=== PATIENT | male | born 1995 | race Caucasian/White ===

== ENCOUNTER 2016-09-18 05:36 | Emergency (ER) | payer OTHER ==
[~2016-09-18] VITALS: Ht 175.3 cm; Wt 73.0 kg
[2016-09-18 05:38] VITALS: BP 139/76; PULSE 90; RESP 16; TEMP 99.3; O2SAT 98
[2016-09-18 09:07] LABS: BLOOD, URINE NEG (NEG); COMMENT (UR) CULT NOT INDICATED; CULTURE IF INDICATED CULT NOT INDICATED; GLUCOSE,URINE NEG (NEG); KETONE, URINE NEG (NEG); MUCUS URINE FEW /lpf (OCC); NITRITE,URINE NEG (NEG); URINE COLOR YELLOW (YELLW/STRAW)
[2016-09-18 09:12] LABS: AUTOMATED NEUTROPHIL # 18.7 TH/MM3 (1.8-7.7); BASOPHIL # 0.2 TH/MM3 (0-0.2); BASOPHIL % 1.1 % (0.0-2.0); EOSINOPHIL % 0.2 % (0.0-4.0); HEMO FLAGS DIFF FINAL; LYMPH % 2.8 % (9.0-44.0); LYMPHOCYTE # 0.6 TH/MM3 (1.0-4.8); MEAN CELL VOLUME 84.7 FL (80.0-100.0); MEAN CORPUSCULAR HEMOGLOBIN 29.1 PG (27.0-34.0); MEAN CORPUSCULAR HGB CONC 34.4 % (32.0-36.0); NEUT % 88.9 % (16.0-70.0); PLATELET COUNT 176 TH/MM3 (150-450); RED BLOOD COUNT 4.84 MIL/MM3 (4.50-5.90); RED CELL DISTRIBUTION WIDTH 13.5 % (11.6-17.2); WHITE BLOOD COUNT 21.1 TH/MM3 (4.0-11.0)
[2016-09-18 09:30] LABS: BICARBONATE 28.9 MEQ/L (21.0-32.0); POTASSIUM 3.7 MEQ/L (3.5-5.1)
--- NOTE | 2016-09-18 10:04 | PD ---
HPI Chief Complaint: Pain: Acute or Chronic Time Seen by Provider: 09:54 Travel History International Travel<30 days: No Contact w/Intl Traveler<30days: No Traveled to known affect area: No History of Present Illness HPI This is a 20-year-old male who presents to the emergency department with 2 days of cough, left-sided chest pain,, constant, moderate severity, worse with movement, associated with some subjective fevers and chills as well as sore throat and runny nose. He denies any history of IV drug use. He denies any sick contacts. He is otherwise healthy. He's been eating and drinking normally and denies any abdominal pain or vomiting. PFSH Past Medical History Asthma: Yes Blood Disorders: No Social History Alcohol Use: Yes (occassional) Tobacco Use: Yes Substance Use: No Allergies-Medications (Allergen,Severity, Reaction): Coded Allergies: Amoxicillin (Verified Allergy, Severe, 09/18/16) Clavulanic Acid (Verified Allergy, Severe, 09/18/16) Augmentin (Verified Allergy, Unknown, 09/18/16) Review of Systems Except as stated in HPI: all other systems reviewed are Neg Physical Exam Narrative GENERAL:Well appearing, no acute distress SKIN: Warm and dry. HEAD: Atraumatic. Normocephalic. EYES: Pupils equal and round. No injection or drainage. ENT: Moist mucous membranes. Posterior pharyngeal erythema with no exudates. Some rhinorrhea. NECK: Trachea midline. CARDIOVASCULAR: Regular rate and rhythm. No murmur appreciated. RESPIRATORY: Clear to auscultation. Breath sounds equal bilaterally. GASTROINTESTINAL: Abdomen soft, non-tender, nondistended. MUSCULOSKELETAL: No obvious deformities. NEUROLOGICAL: Awake and alert. No obvious cranial nerve deficits. Moving all extremities. PSYCHIATRIC: Appropriate mood and affect; insight and judgment normal. Data Data Last Documented VS Vital Signs Date Time Temp Pulse Resp B/P Pulse Ox O2 Delivery O2 Flow Rate FiO2 09/18/16 09:45 20 09/18/16 05:38 99.3 90 139/76 98 Room Air Orders Urinalysis - C+S If Indicated (09/18/16 08:39) Complete Blood Count With Diff (09/18/16 08:39) Basic Metabolic Panel (Bmp) (09/18/16 08:39) Chest, Pa & Lat (3/23/17 ) Influenzae A/B Antigen (09/18/16 10:02) Ketorolac Inj (Toradol Inj) (09/18/16 10:45) Hiv Antibody Screen (09/18/16 10:39) Labs Laboratory Tests Test 09/18/16 09/18/16 08:37 09:00 Urine Color YELLOW Urine Turbidity CLEAR Urine pH 7.0 Urine Specific [place] 1.025 Urine Protein NEG mg/dL Urine Glucose (UA) NEG mg/dL Urine Ketones NEG mg/dL Urine Occult Blood NEG Urine Nitrite NEG Urine Bilirubin NEG Urine Urobilinogen LESS THAN 2.0 MG/DL Urine Leukocyte Esterase NEG Urine RBC 2 /hpf Urine WBC 2 /hpf Urine Mucus FEW /lpf Microscopic Urinalysis Comment CULT NOT INDICATED White Blood Count 21.1 TH/MM3 Red Blood Count 4.84 MIL/MM3 Hemoglobin 14.1 GM/DL Hematocrit 41.0 % Mean Corpuscular Volume 84.7 FL Mean Corpuscular Hemoglobin 29.1 PG Mean Corpuscular Hemoglobin 34.4 % Concent Red Cell Distribution Width 13.5 % Platelet Count 176 TH/MM3 Mean Platelet Volume 10.4 FL Neutrophils (%) (Auto) 88.9 % Lymphocytes (%) (Auto) 2.8 % Monocytes (%) (Auto) 7.0 % Eosinophils (%) (Auto) 0.2 % Basophils (%) (Auto) 1.1 % Neutrophils # (Auto) 18.7 TH/MM3 Lymphocytes # (Auto) 0.6 TH/MM3 Monocytes # (Auto) 1.5 TH/MM3 Eosinophils # (Auto) 0.0 TH/MM3 Basophils # (Auto) 0.2 TH/MM3 CBC Comment DIFF FINAL Differential Comment Sodium Level 137 MEQ/L Potassium Level 3.7 MEQ/L Chloride Level 102 MEQ/L Carbon Dioxide Level 28.9 MEQ/L Anion Gap 6 MEQ/L Blood Urea Nitrogen 12 MG/DL Creatinine 1.10 MG/DL Estimat Glomerular Filtration 85 ML/MIN Rate Random Glucose 108 MG/DL Calcium Level 8.7 MG/DL [facility] Medical Decision Making Medical Screen Exam Complete: Yes Emergency Medical Condition: Yes Interpretation(s) Temperature is 99.3 White blood cell count is 21 88% neutrophils Electrolytes are reassuring Urinalysis is negative for infection Chest x-ray: Left lower lobe pneumonia Differential Diagnosis Pneumonia, viral syndrome, sepsis, urinary tract infection, pyelonephritis Narrative Course This is a 20-year-old male who presents to the emergency department with left- sided chest pain, cough, rhinorrhea and sore throat. He is otherwise healthy with the exception of a history of asthma. Labs were obtained which demonstrate a white count of 20. He is not wheezing on exam and is in no respiratory distress. Chest x-ray demonstrates a left lower lobe pneumonia. I think it's a little strange that it 20-year-old otherwise healthy patient has a white count of 20 and a pneumonia. I did send a HIV test and I discussed this with the patient and obtained his consent. I will follow-up with him regarding the results of this test. Otherwise he looks quite well and I think he can be discharged on oral antibiotics. He was instructed to return to the emergency department if he worsens. Diagnosis Primary Impression: Pneumonia Qualified Code: J18.1 - Pneumonia of left lower lobe due to infectious organism Patient Instructions: General Instructions Additional Instructions: If you develop severe chest pain, shortness of breath, sweating, lightheadedness , dizziness or difficulty breathing return to the emergency department immediately. Followup with your primary care physician in 2-3 days if your symptoms are not resolved. Med/Other Pt SpecificInfo: Prescription(s) given Scripts Acetaminophen-Codeine (Tylenol-Codeine #3)300-30 mg Tab1-2 Tab PO Q6H PRN (PAIN ) #20 TAB Ref 0 Prov:Aspen Hoyos MD 09/18/16 Albuterol 8.5 GM Inh (Proair Hfa 8.5 GM Inh)90 Mcg/Act Aer2 Puff INH Q4-6H PRN ( SHORTNESS OF BREATH) #1 INHALER Ref 0 108 mcg/actuation Prov:Aspen Hoyos MD 09/18/16 Levofloxacin (Levaquin)500 Mg [id number] Mg PO DAILY 7 Days Ref 0 Prov:Aspen Hoyos MD 09/18/16 Disposition: 01 DISCHARGE HOME Condition: Stable Aspen Hoyos MD Sep 18, 2016 10:04
[2016-09-18] MEDS ORDERED: KETOROLAC TROMETHAMINE 30 MG/ML (IVP) VIAL IV PUSH ONE (10:45)
--- NOTE | 2016-09-18 10:45 | RADRPT ---
EXAM DATE/TIME: 09/18/2016 10:19 [place] COMPARISON: No previous studies available for comparison. INDICATIONS : Chest pain and cough. MEDICAL HISTORY : None. SURGICAL HISTORY : None. ENCOUNTER: Initial ACUITY: 1 day PAIN SCORE: 9/10 LOCATION: Left chest FINDINGS: Focal patchiness is noted within the left lung base consistent with probable developing pneumonia. C linical correlation is recommended. The right lung is clear. The heart and mediastinal structures a re normal. CONCLUSION: 1. Focal patchiness within the left lung base consistent with probable developing pneumonia. Clinic al correlation is recommended. Yordan Abdullahi MD on September 18, 2016 at 10:34 Board Certified Radiologist. This report was verified electronically.
[2016-09-18] MEDS ORDERED: TYLETAB34 PO (10:54)
[2016-09-18] MEDS ORDERED: LEVA500T PO (10:54)
[2016-09-18] MEDS ORDERED: ALBUAER3 INH (10:54)
[2016-09-18 11:11] VITALS: BP 121/67
--- NOTE | 2016-09-19 09:28 | ED.CB ---
ED Call Back Communication Called patient and informed him his HIV screen was negative. Pt. is feeling better. Aspen Hoyos MD Sep 19, 2016 09:28
== END 2016-09-18 11:10 | disposition home or self-care (01) ==
LOC: NEPB 05:36
DX: J18.1 Lobar pneumonia, unspecified organism (principal); J02.9 Acute pharyngitis, unspecified; Z72.0 Tobacco use
CPT/HCPCS: 71020; 80048; 81001; 85025; 86703; 87804; 99285

== ENCOUNTER → 2017-04-15 | Day surgery (SDC) | payer OTHER ==
--- NOTE | 2017-04-13 12:56 | MH ---
cc: SHANNA VIEYRA M.D. DATE OF ADMISSION: 04/15/2017 DATE OF : 1995 CHIEF COMPLAINT Sinusitis. HISTORY OF PRESENT ILLNESS A 21-year-old male presents with a history of chronic sinusitis, nasal obstruction, history of polypoid disease. He has not responded to medical therapy, shows evidence of chronic sinus disease. He is to undergo bilateral endoscopic sinusotomies, bilateral polypectomies, bilateral submucosal resection and resection of the inferior turbinates. PAST MEDICAL HISTORY Chronic sinusitis, nasal obstruction. PAST SURGICAL HISTORY No previous surgeries. MEDICATIONS 1. Zithromax. 2. Medrol Dosepak. ALLERGIES No known drug allergies. PHYSICAL EXAMINATION GENERAL: A well-developed thin male in no apparent distress. HEENT: Normocephalic, atraumatic. Extraocular motions intact. External ear canals clear. Lips, oral mucosa and oropharynx show no lesion. Nasal exam confirms obstruction with polypoid disease and blockage of the nasal cavity, turbinate hypertrophy and blockage of the middle meatus. CHEST: Clear to auscultation. HEART: Regular rate. ABDOMEN: Soft. EXTREMITIES: No lesion. NEUROLOGIC: Nonfocal. ASSESSMENT This is a 21-year-old male with chronic sinusitis and nasal obstruction. PLAN He is to undergo polypectomies, sinusotomies and turbinate resection bilaterally. The risks and benefits were discussed with the patient. The risks include but are not limited to those of anesthesia, bleeding, unfavorable scarring, CSF leak, meningitis, brain abscess, double vision, vision loss, blindness, anosmia, septal perforation, epistaxis. The patient states he understands and accepts the risks of the procedure. MD CHUYITA Ghotra/HAKEEM /12:41 PM /12:48 PM
[~2017-04-15] VITALS: Ht 175.3 cm; Wt 71.9 kg
[~2017-04-15] MED LIST: ACETAMINOPHEN/HYDROcodone 325 MG/5 MG TAB PO PRN; CHLORHEXIDINE GLUCONATE 2 % 1 PACK (2 CLOTHS) TOPICAL PRN; DEXAMETHASONE SOD PHOS 4 MG/ML VIAL IV ONE; DO NOT ADM ANY ANTICOAGULANT DRUGS PRN; EPINEPHrine HCL (1:1000) 1 MG/ML VIAL ONE; EPINEPHrine HCL (1:1000) 30 MG/30 ML VIAL ONE; GELATIN 12 MM/7 MM FOAM ONE; GLYCOPYRROLATE 1 MG/5 ML SYRINGE IV PUSH ONE; INSULIN HUMAN REGULAR 1,000 UNITS/10 ML VIAL SQ PRN; LABETALOL HCL 100 MG/20 ML VIAL IV ONE; LIDOCAINE 1%/EPINEPHrine 1:100,000 SOLN 50 ML VIAL ONE; LIDOCAINE HCL 1% PF 5 ML AMPULE OTHER ONE; METOPROLOL TARTRATE 25 MG TAB PO PRN; MORPHINE SULFATE 4 MG/ML INJ IV PRN; MORPHINE SULFATE 4 MG/ML INJ ONE; NEOSTIGMINE 3 MG/3 ML SYR IV ONE; ONDANSETRON HCL 4 MG/2 ML VIAL IV PUSH ONE; ONDANSETRON HCL 4 MG/2 ML VIAL IV PUSH PRN; POVIDONE IODINE 5% (ANTISEPSIS KIT) 4 APPLICATIONS EACH NARE PRN; PROPOFOL 200 MG/20 ML AMP IV ONE; ROCURONIUM INJ 50 MG/5 ML SYRINGE IV PUSH ONE; SODIUM CHLORID 0.9% 500 ML IV PRN; ceFAZolin INJ 1,000 MG VIAL ONE
[2017-04-15] MEDS: LACTATED RINGER'S 1000 ML IV PRN ×2 (08:00→11:15)
[2017-04-15 08:29] LABS: BASOPHIL % 0.6 % (0.0-2.0); EOSINOPHIL # 0.2 TH/MM3 (0-0.4); EOSINOPHIL % 3.2 % (0.0-4.0); HEMATOCRIT 46.4 % (39.0-51.0); HEMO FLAGS DIFF FINAL; LYMPH % 32.9 % (9.0-44.0); LYMPHOCYTE # 1.9 TH/MM3 (1.0-4.8); MEAN CELL VOLUME 88.5 FL (80.0-100.0); MEAN CORPUSCULAR HEMOGLOBIN 29.4 PG (27.0-34.0); MEAN CORPUSCULAR HGB CONC 33.2 % (32.0-36.0); MONO % 10.8 % (0.0-8.0); NEUT % 52.5 % (16.0-70.0); PLATELET COUNT 139 TH/MM3 (150-450); RED BLOOD COUNT 5.24 MIL/MM3 (4.50-5.90); WHITE BLOOD COUNT 5.7 TH/MM3 (4.0-11.0)
--- NOTE | 2017-04-15 11:29 | MP ---
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 He has not responded to medical therapy and plan is for endoscopic sinusotomies, polypectomies and turbinate resection. PREOPERATIVE DIAGNOSIS Chronic sinusitis, nasal obstruction. POSTOPERATIVE DIAGNOSIS Chronic sinusitis, nasal obstruction. PROCEDURE Bilateral endoscopic frontal sinusotomy, left endoscopic anterior ethmoidectomy, right endoscopic sphenoid sinusotomy, bilateral endoscopic maxillary sinusotomies with removal of soft tissue, bilateral polypectomies, bilateral submucosal section of inferior turbinates. SUMMARY The patient brought to the operating room, placed in the supine position, successfully placed under general anesthesia and prepared in the usual fashion for this procedure. The nose was packed bilateral with adrenalin soaked sponges. On the left side, there was severe polypoid disease. Specimens were taken anteriorly and then with the microdebrider, the nasal cavity was cleared of polypoid disease to the posterior cavity and posterior biopsies were also sent. The nare was packed with adrenaline sponges and attention to the right side. On the right side was polypoid disease near the middle meatus blocking the maxillary sinus and represented specimens was taken here and polypectomy was completed here adjacent to the maxillary sinus. Then the balloon sinuplasty frontal recess was identified. Endoscopic frontal sinusotomy was completed with opening of the frontal recess under endoscopic guidance with balloon dilation. The maxillary sinus was identified. The uncinate process was rolled anteriorly and soft tissue was removed adjacent with the microdebrider and then the maxillary sinusotomies was completed under endoscopic guidance using balloon dilation and removal of soft tissue with the microdebrider Sphenoid sinus was dressed from a transnasal route with endoscopic approach. The sphenoid sinus was identified and then was dilated from a transnasal route completing sphenoid sinusotomy. On the left side, polyps were removed and the middle meatus was identified. The middle turbinate had been moved medially and the uncinate process was quite enlarged and these were gently opened. Care was taken to keep the microdebrider blade turned medially away from the area of the orbit. There was no breach noted in the orbital area. Polypoid disease was then removed in the area of the maxillary sinus with the Gully probed. The maxillary sinus was identified and soft tissue was removed here completing a maxillary sinusotomy. The ethmoid was followed from the polypoid disease and the anterior ethmoidectomy was completed with the microdebrider under endoscopic guidance. The area of the frontal recess was dissected. Polypoid tissues was removed here completing frontal sinusotomy. The left inferior turbinate was incised inferiorly. Submucous resection was completed. The area was cauterized and closed. The right inferior turbinate was incised. Inferior submucous section was then completed. The area was cauterized and closed. The patient was suctioned. A gel nasal port packing was placed on the left side. There was no packing required on the right side. He was awakened and extubated, taken to recovery in stable condition. MD CHUYITA Ghotra/MICHEL /10:57 AM /2:21 PM
[2017-04-15 12:58] VITALS: BP 146/86; PULSE 76; RESP 16; TEMP 98.6; O2SAT 100
== END | disposition home or self-care (01) ==
LOC: HSDC 07:23
PROVIDERS: ATTEND Specialist
DX: J34.3 Hypertrophy of nasal turbinates (principal); J32.9 Chronic sinusitis, unspecified; J33.9 Nasal polyp, unspecified
CPT/HCPCS: 00160; 30140; 31254; 31267; 31276; 31287; 85025; 88304; J0171; J0690; J1100; J2270; J2405; J2710; J3010; J7120